=== PATIENT | male | born 1970 | race Caucasian/White ===

== ENCOUNTER → 2024-08-04 09:55 | Outpatient (REF) | payer MEDICARE, SELFPAY | LOC: RCS 09:55 | PROVIDERS: ATTENDING PHYSICIAN Family Medicine | DX: R07.89 Other chest pain (principal) | CPT/HCPCS: 93005 ==

== ENCOUNTER → 2024-08-13 12:04 | Outpatient (REF) | payer MEDICARE, SELFPAY | LOC: RAD 12:04 | PROVIDERS: ATTENDING PHYSICIAN Internal Medicine Critical Care Medicine; FAMILY PHYSICIAN Family Medicine | DX: R06.02 Shortness of breath (principal) | CPT/HCPCS: 71046 ==

== ENCOUNTER → 2024-08-26 09:02 | Outpatient (REF) | payer MEDICARE, SELFPAY ==
[2024-08-26] MEDS: DOBUTREX 17.7 MG IV (11:14)
[2024-08-26] MEDS: DOBUTREX 17.7 ML IV (11:14)
[2024-08-26] MEDS: NSS 250 IV (11:15)
== END ==
LOC: RCS 09:02
PROVIDERS: ATTENDING PHYSICIAN Internal Medicine Cardiovascular Disease; FAMILY PHYSICIAN Family Medicine
DX: R07.89 Other chest pain (principal); Z87.891 Personal history of nicotine dependence; R94.31 Abnormal electrocardiogram [ECG] [EKG]
CPT/HCPCS: 93017; 93320; 93325; 93350

== ENCOUNTER → 2024-09-21 12:57 | Outpatient (REF) | payer MEDICARE, SELFPAY | LOC: HWRAD 12:57 | PROVIDERS: ATTENDING PHYSICIAN Internal Medicine; FAMILY PHYSICIAN Family Medicine | DX: N20.0 Calculus of kidney (principal) | CPT/HCPCS: 76775 ==

== ENCOUNTER 2025-07-12 22:16 | Inpatient (IN) | payer MEDICARE, SELFPAY ==
[2025-07-12] VITALS (10 sets, daily range): BP systolic 63–127; BP diastolic 42–73; BMI 19.2
[2025-07-12 17:35] LABS: Hematocrit 33.7 % (39.0-52.0); Hemoglobin 12.1 g/dL (13.0-18.0); Mean Corp Hgb Conc. 35.9 g/dL (33.0-37.0); Mean Corpuscular Volume 88.7 fL (80.0-94.0); Nucleated Red Blood Cells % 0 % (-); Platelet Count 138 10^3/uL (130-400); Red Cell Dist. Width 14.1 % (11.5-14.5)
[2025-07-12 18:00] LABS: ALT (SGPT) 19 U/L (0-50); AST (SGOT) 22 U/L (17-59); Albumin 3.1 g/dl (3.5-5.0); Alkaline Phosphatase 71 U/L (38-126); Blood Urea Nitrogen 24 mg/dl (9-20); Calcium 7.5 mg/dl (8.4-10.2); Carbon Dioxide 21 mmol/L (22-30); Chloride 95 mmol/L (98-107); Glucose 117 mg/dl (70-99); Potassium 4.4 mmol/L (3.5-5.1); Sodium 120 mmol/L (135-145); Total Protein 5.5 g/dl (6.3-8.2); eGFR > 60.00
--- NOTE | 2025-07-12 19:28 | ED.GENMED ---
History of Present Illness
<Genny Salamanca PA-C - Last Filed: 07/13/25 13:25>
General
Chief Complaint: Fever
Source: patient and spouse
Exam Limitations: none
Time Seen by Provider: 07/12/25 18:33
Nursing documentation reviewed up to this point in time: agreed with
History of Present Illness
History of Present Illness:
Patient is a 55-year-old male with history of quadriplegia with suprapubic catheter, urosepsis secondary to obstructing stone who presents to the emergency department with concerns of fever and rigors at home over the past 2 days. Patient states he
began with shaking chills and fever on Saturday evening which have been persistent. Tylenol only temporarily was fever. He also reports generalized abdominal bloating as well as decreased urine production which has been very dark in color in his
catheter bag.
Patient has no sensation below his neck and therefore has been unable to appreciate any true abdominal/back pain.
He denies any other viral URI symptoms or productive cough. No shortness of breath. No known sick contacts.
Past History
<Genny Salamanca PA-C - Last Filed: 07/13/25 13:25>
Past History
ED Past Medical History: Other (quadraplegia, BRANDON, kidney stones) and Other (Kidney stones, quadriplegia, sleep apnea, ADHD, depression, cervical fusion, neurogenic bladder)
ED Past Surgical History: Orthopedic and Urological
Social History
Tobacco: Non-smoker
Alcohol: Occasional
Drug: None
Personal:
Living: with family
Family History
Family History: Other (Noncontributory)
Review of Systems
<Genny Salamanca PA-C - Last Filed: 07/13/25 13:25>
Review of Systems
Allergies reviewed?: Yes
All Other Systems: ROS reviewed and negative except as documented in HPI and ROS
Phy Exam
<Genny Salamanca PA-C - Last Filed: 07/13/25 13:25>
Physical Exam
Physical Exam:
Vitals: Febrile, normotensive
General: Patient appears in no distress.
Skin: Warm and dry, no rashes or lesions
Head: Normocephalic, atraumatic
Eyes: Sclera nonicteric. EOMs intact. No nystagmus.
Throat: No pharyngeal erythema or tonsillar edema/exudates. Uvula midline. Protecting airway
Neck: No cervical spine tenderness.
Cardiac: Regular rate and rhythm, no murmurs.
Pulm: Normal respiratory effort, no wheezes, rales, rhonchi heard on exam
Abdomen: Abdomen soft and nondistended.
Extremities: No evidence of cyanosis or edema
Neuro: AAOx3. Quadriplegia
Psychiatric: Normal affect.
Course
<Genny Salamanca PA-C - Last Filed: 07/13/25 13:25>
Orders/Labs/Results
Orders:
Orders
07/12/25 17:25
Complete Blood Count/With Diff Urgent
Comprehensive Metabolic Panel Urgent
Lactic Acid Q4H
Comment: ON ICE, CANCEL 2ND ORDER IF FIRST LACTIC ACID LEVEL <2
Blood Culture Q20M
[place] Source: Blood/Venous
Specimen Description:
Date Specimen was Collected: 07/12/25
Time Specimen was Collected: 17:15
Comment: Urgent from separate sites. If patient screens positive for possible sepsis
Urine Culture Urgent
[place] Source: U
Specimen Description:
Date Specimen was Collected: 07/12/25
Time Specimen was Collected: 17:15
07/12/25 18:43
0.9% Sodium Chloride 1000 ml [Nss] 1,000 ml IV BOLUS
Acetaminophen [Tylenol] 650 mg PO NOW STA
Cefepime HCl [Maxipime] 2,000 mg IV NOW STA
07/12/25 18:44
CT Abd/pelvis W Iv Cont Urgent
Comment:
Reason For Exam: Quadraplegic; abdominal bloating & fever
07/12/25 19:23
Cardiac Monitoring- Treatment ONCE
07/12/25 19:43
COVID-19 Antigen Urgent
Source: Nasal Swab
Urinalysis Urgent
Date Specimen was Collected: 07/12/25
Time Specimen was Collected: 17:15
Urine Microscopic Urgent
Date Specimen was Collected: 07/12/25
Time Specimen was Collected: 17:15
Blood Culture Q20M
[place] Source: Blood/Venous
Specimen Description:
Comment: Urgent from separate sites. If patient screens positive for possible sepsis
Influenza A+B Rapid Molecular Urgent
[place] Source: Nasal Swab
Specimen Description:
07/12/25 21:52
Fentanyl Citrate/Pf [Sublimaze] 100 mcg .ROUTE .STK-MED ONE
07/12/25 21:57
Fentanyl Citrate/Pf [Sublimaze] 25 mcg IV [id number] PRN
Fentanyl Citrate/Pf [Sublimaze] 25 mcg IV PACU-Q5MPRN PRN
Fentanyl Citrate/Pf [Sublimaze] 50 mcg IV PACU-Q5MPRN PRN
Ondansetron Injectable [Zofran] 4 mg IV PACU-ONCEPRN PRN
Prochlorperazine [Compazine] 5 mg IV PACU-ONCEPRN PRN
Notify MD As Directed
Notify physician if: for SDS patients with known or suspected sleep obstructive sleep apnea, monitor in the
PACU.
Notify MD for any apneic/desaturation episodes
O2 Therapy [RESP] Urgent
Titrate/Wean O2 to maintain O2 sat greater than (%): 92
Special Instructions: -Provide supplemental oxygen to achieve O2 sat of 92% or greater.
-After 15 min, may wean O2 and discontinue if patient is able to maintain O2 sat of 92%
or greater during recovery period.
If patient is a discharge home, without oxygen therapy, notify anestheiologist if
unable to maintain O2 SAT of 92% or greater on room air for MD clearance.
07/12/25 22:00
Normosol (Mult Electrolytes) [Normosol-R/Plasmalyte-A] 1,000 ml IV PER PROTOCOL
Abnormal Lab Results
07/12/25 07/12/25
17:25 19:43
WBC 10.9 H 10^3/uL
(4.8-10.8)
RBC 3.80 L 10^6/uL
(4.70-6.10)
Hgb 12.1 L g/dL
(13.0-18.0)
Hct 33.7 L %
(39.0-52.0)
MCH 31.8 H pg
(27.0-31.0)
Abs Immat Gran (auto) 0.1 H 10^3/uL
(0-0.05)
Absolute Neuts (auto) 9.8 H 10^3/uL
(1.4-6.5)
Absolute Lymphs (auto) 0.2 L 10^3/uL
(1.2-3.4)
Absolute Monos (auto) 0.7 H 10^3/uL
(0.1-0.6)
Immature Gran % 1.2 H %
(0-0.5)
Neutrophils % 89.8 H %
(42.2-75.2)
Lymphocytes % 1.9 L %
(20.5-51.1)
Sodium 120 L mmol/L
(135-145)
Chloride 95 L mmol/L
(98-107)
Carbon Dioxide 21 L mmol/L
(22-30)
BUN 24 H mg/dl
(9-20)
Glucose 117 H mg/dl
(70-99)
Calcium 7.5 L mg/dl
(8.4-10.2)
Total Protein 5.5 L g/dl
(6.3-8.2)
Albumin 3.1 L g/dl
(3.5-5.0)
Urine Ketones 2+ A
(Negative)
Urine Occult Blood 4+ A
(Negative)
Ur Leukocyte Esterase 3+ A
(Negative)
Urine RBC 80-90 A /HPF
(0-2)
Urine WBC 80-90 A /HPF
(0-5)
Urine Bacteria Many A
(Negative)
Urine Albumin 3+ A
(Neg - Trace)
07/12/25 17:25
07/12/25 17:25
Vital Signs
Initial and Last Documented VS:
Initial Vital Signs
Temp Pulse Resp BP Pulse Ox
102.5 F H 84 18 102/73 98
07/12/25 17:05 07/12/25 17:05 07/12/25 17:05 07/12/25 17:05 07/12/25 17:05
Last Documented Vital Signs
Temp Pulse Resp BP Pulse Ox
99.6 F 97 16 108/60 96
07/13/25 11:45 07/13/25 10:45 07/13/25 10:45 07/13/25 10:00 07/13/25 10:30
<Ori Fallon, DO - Last Filed: 07/12/25 20:43>
Orders/Labs/Results
Orders:
Orders
07/12/25 17:25
Complete Blood Count/With Diff Urgent
Comprehensive Metabolic Panel Urgent
Lactic Acid Q4H
Comment: ON ICE, CANCEL 2ND ORDER IF FIRST LACTIC ACID LEVEL <2
Blood Culture Q20M
[place] Source: Blood/Venous
Specimen Description:
Date Specimen was Collected: 07/12/25
Time Specimen was Collected: 17:15
Comment: Urgent from separate sites. If patient screens positive for possible sepsis
Urine Culture Urgent
[place] Source: U
Specimen Description:
Date Specimen was Collected: 07/12/25
Time Specimen was Collected: 17:15
07/12/25 18:43
0.9% Sodium Chloride 1000 ml [Nss] 1,000 ml IV BOLUS
Acetaminophen [Tylenol] 650 mg PO NOW STA
Cefepime HCl [Maxipime] 2,000 mg IV NOW STA
07/12/25 18:44
CT Abd/pelvis W Iv Cont Urgent
Comment:
Reason For Exam: Quadraplegic; abdominal bloating & fever
07/12/25 19:23
Cardiac Monitoring- Treatment ONCE
07/12/25 19:43
COVID-19 Antigen Urgent
Source: Nasal Swab
Urinalysis Urgent
Date Specimen was Collected: 07/12/25
Time Specimen was Collected: 17:15
Urine Microscopic Urgent
Date Specimen was Collected: 07/12/25
Time Specimen was Collected: 17:15
Blood Culture Q20M
[place] Source: Blood/Venous
Specimen Description:
Comment: Urgent from separate sites. If patient screens positive for possible sepsis
Influenza A+B Rapid Molecular Urgent
[place] Source: Nasal Swab
Specimen Description:
07/12/25 21:52
Fentanyl Citrate/Pf [Sublimaze] 100 mcg .ROUTE .STK-MED ONE
07/12/25 21:57
Fentanyl Citrate/Pf [Sublimaze] 25 mcg IV [id number] PRN
Fentanyl Citrate/Pf [Sublimaze] 25 mcg IV PACU-Q5MPRN PRN
Fentanyl Citrate/Pf [Sublimaze] 50 mcg IV PACU-Q5MPRN PRN
Ondansetron Injectable [Zofran] 4 mg IV PACU-ONCEPRN PRN
Prochlorperazine [Compazine] 5 mg IV PACU-ONCEPRN PRN
Notify MD As Directed
Notify physician if: for SDS patients with known or suspected sleep obstructive sleep apnea, monitor in the
PACU.
Notify MD for any apneic/desaturation episodes
O2 Therapy [RESP] Urgent
Titrate/Wean O2 to maintain O2 sat greater than (%): 92
Special Instructions: -Provide supplemental oxygen to achieve O2 sat of 92% or greater.
-After 15 min, may wean O2 and discontinue if patient is able to maintain O2 sat of 92%
or greater during recovery period.
If patient is a discharge home, without oxygen therapy, notify anestheiologist if
unable to maintain O2 SAT of 92% or greater on room air for MD clearance.
07/12/25 22:00
Normosol (Mult Electrolytes) [Normosol-R/Plasmalyte-A] 1,000 ml IV PER PROTOCOL
Abnormal Lab Results
07/12/25 07/12/25
17:25 19:43
WBC 10.9 H 10^3/uL
(4.8-10.8)
RBC 3.80 L 10^6/uL
(4.70-6.10)
Hgb 12.1 L g/dL
(13.0-18.0)
Hct 33.7 L %
(39.0-52.0)
MCH 31.8 H pg
(27.0-31.0)
Abs Immat Gran (auto) 0.1 H 10^3/uL
(0-0.05)
Absolute Neuts (auto) 9.8 H 10^3/uL
(1.4-6.5)
Absolute Lymphs (auto) 0.2 L 10^3/uL
(1.2-3.4)
Absolute Monos (auto) 0.7 H 10^3/uL
(0.1-0.6)
Immature Gran % 1.2 H %
(0-0.5)
Neutrophils % 89.8 H %
(42.2-75.2)
Lymphocytes % 1.9 L %
(20.5-51.1)
Sodium 120 L mmol/L
(135-145)
Chloride 95 L mmol/L
(98-107)
Carbon Dioxide 21 L mmol/L
(22-30)
BUN 24 H mg/dl
(9-20)
Glucose 117 H mg/dl
(70-99)
Calcium 7.5 L mg/dl
(8.4-10.2)
Total Protein 5.5 L g/dl
(6.3-8.2)
Albumin 3.1 L g/dl
(3.5-5.0)
Urine Ketones 2+ A
(Negative)
Urine Occult Blood 4+ A
(Negative)
Ur Leukocyte Esterase 3+ A
(Negative)
Urine RBC 80-90 A /HPF
(0-2)
Urine WBC 80-90 A /HPF
(0-5)
Urine Bacteria Many A
(Negative)
Urine Albumin 3+ A
(Neg - Trace)
07/12/25 17:25
07/12/25 17:25
Vital Signs
Initial and Last Documented VS:
Initial Vital Signs
Temp Pulse Resp BP Pulse Ox
102.5 F H 84 18 102/73 98
07/12/25 17:05 07/12/25 17:05 07/12/25 17:05 07/12/25 17:05 07/12/25 17:05
Last Documented Vital Signs
Temp Pulse Resp BP Pulse Ox
99.6 F 97 16 108/60 96
07/13/25 11:45 07/13/25 10:45 07/13/25 10:45 07/13/25 10:00 07/13/25 10:30
<Genny Salaamnca PA-C - Last Filed: 07/13/25 13:25>
MDM/Problems Addressed
Differential Diagnosis Includes:
Not limited to: Urosepsis, cystitis, pyelonephritis, obstructing ureteral calculus, viral illness, appendicitis, diverticulitis, etc.
MDM/Problems Addressed:
55 year-old male presenting with two days of fevers and rigors along with decreased urine output through suprapubic catheter. Also reports abdominal bloating however is quadraplegic without sensation below neck.
Patient febrile on arrival, however normotensive with otherwise stable vital signs.
On exam � patient appears in no distress. His abdomen is soft. Cardio/pulmonary assessment unremarkable. Suprapubic catheter bag with visible hematuria.
Basic labs obtained prior to my evaluation with very mild leukocytosis of 10.9 with left shift. Chemistry reveals hyponatremia and hypocalcemia. Otherwise no clinically significant abnormalities. Lactic acid normal.
Given fever on arrival with obvious hematuria � concern for urinary infection. Unable to exclude other intra-abdominal infection.
ED plan: CT scan abdomen/pelvis, UA. Patient has hx of urosepsis. IV fluids, and Cefepime initiated immediately.
Will monitor very closely and reassess. Blood cultures were sent out in triage.
Update: I did review patient CT images when he returned, which on my own interpretation reveals a suspected obstructing left proximal ureteral calculus. Given fever on arrival, concern from developing urosepsis. Case discussed with urology,
Reinaldo cornelius who also reviewed images and agrees with the interpretation. Plan for OR tonight. Patient has remained normotensive and has received IV antibiotics, IVF.
Update: UA results with clear evidence of infection. CT scan official read with 7 mm obstructing left UPJ stone. Patient was admitted to the hospitalist service and brought directly to OR for intervention in stable condition.
Chronic conditions affecting care:
History of urosepsis/kidney stones, quadriplegia
Acute Exacerbation and/or Progression of Chronic Illness:
Evolving urosepsis secondary to obstructing left ureteral calculus
<Genny Salamanca PA-C - Last Filed: 07/13/25 13:25>
*Radiology
Radiology exam reviewed: preliminary read by ED provider (CT abdomen/pelvis reviewed by me-obstructing left proximal ureteral calculus) and radiology read reviewed
*Pulse Oximetry
SaO2: 98
Oxygen Mode of Delivery: Room air
Patient hypoxic: no
*EKG
Interpreted by ED Provider?: NA
*Assistant Press Operator Interpretation
Rate: normal
Interpretation: normal
Heart Rate: 72
Rhythm: sinus
*Critical Care Note
Total Time (30-74mins, 75-104mins- exclusive of procedures): Not Applicable
<Genny Salamanca PA-C - Last Filed: 07/13/25 13:25>
Patient Management
Discussion with other providers: Hospitalist and Wardrobe Assistant (Case discussed with urology)
Escalation/DeEscalation of care consider admission/obs:
Admit with impending urosepsis secondary to obstructing left ureteral calculus�plan for OR tonight with urology
ED Attending Note
<Genny Salamanca PA-C - Last Filed: 07/13/25 13:25>
-
Portions of this chart may have been created with voice recognition software.� Occasional wrong word or��sound alike� substitutions may have occurred due to the inherent limitations of voice recognition software.
<Ori Fallon DO - Last Filed: 07/12/25 20:43>
ED Attending Note
Patient seen and examined by attending physician: Yes
I performed the substantive portion of visit, reviewed & personally made and approve the management plan that is documented in note by myself or ANTHONY.: Yes
ED Attending Note:
I evaluated the patient at bedside. The patient currently is not tachycardic but is febrile. White count 10.9 with left shift. He was already given cefepime earlier in the course of the emergency department. His lactic is 1.9. Urology has been
notified. I personally reviewed CT imaging which shows an obstructing stone in the mid left ureter
Discharge Plan
Departure
Patient Disposition: Admit
Date of Disposition: 07/12/25
Time of Disposition: 21:15
Presentation/result/management discussed w/ accepting MD/DO: Hospitalist
Discharge Problem:
Calculus of proximal left ureter
Interventions
Interventions:
*Risk Screen - Suicide Last Done: 07/12/25 17:05
*General Assessment Last Done: 07/12/25 17:05
*Neglect/Abuse Screening Last Done: 07/12/25 17:05
*ED- Fall Risk Assessment Last Done: 07/12/25 21:16
*ED COVID-19 Vaccine History Last Done: 07/12/25 21:16
*Nursing Disposition Last Done: 07/12/25 21:52
ED- Neurological Assessment Last Done: 07/12/25 21:16
ED-Skin Assessment Last Done: 07/12/25 21:16
Discharge Date and Time
Discharge Date/Time: 07/12/25 21:52
[2025-07-12] MEDS: TYLENOL 650 MG PO (19:52)
[2025-07-12 20:25] LABS: COVID-19 Antigen Negative (Negative)
[2025-07-12] MEDS: MAXIPIME 2000 MG IV (20:37)
[2025-07-12] MEDS: NSS 1000 IV (20:37)
[2025-07-12 21:11] LABS: Urine Character Cloudy (Clear)
[2025-07-12 21:28] LABS: Urine Squamous Cell 16-20 /LPF (Few)
[2025-07-12 21:29] LABS: Urine Red Blood Cell 80-90 /HPF (0-2); Urine White Cell 80-90 /HPF (0-5)
--- NOTE | 2025-07-12 21:53 | CONS.URO ---
Consultation
-
Date/Time Consultation Performed: 07/12/250
Requesting Provider: ED
Performing Provider: Reinaldo
Reason for Consultation: Left Ureteral Stone, UTI
Medical History
History of Present Illness
ED note: '55-year-old male with history of quadriplegia with suprapubic catheter, kidney stones, urosepsis who presents emergency department with concerns of fever and rigors at home. Patient states he began with shaking chills and fever on
Saturday evening which have been persistent. He does state that Tylenol temporarily improves fever. He also reports generalized abdominal bloating as well as decreased urine production which has been very dark in color in his catheter bag.'
Past Medical History
Past Medical History: Other (uadraplegia, BRANDON, kidney stones, ADHD, depression, cervical fusion, neurogenic bladder)
Past Surgical History: Orthopedic and Urological
Allergies/Home Medications
Allergies
Allergy/AdvReac Type Severity Reaction Status Date / Time
gluten Allergy Rash Verified 09/18/23 13:03
levofloxacin (From Levaquin) Allergy facial rash Verified 09/18/23 13:03
soy Allergy Rash Verified 09/18/23 13:03
Home Medications
�Medication �Instructions �Recorded �Confirmed �Type
polyethylene glycol 3350 17 gram 17 g PO DAILYPRN PRN constipation 07/27/09 07/12/25 History
oral powder packet
cranberry extract 200 mg capsule 200 mg PO DAILY Supplement 07/11/17 07/12/25 History
(Ellura)
baclofen 10 mg tablet 10 mg PO QID 06/09/21 07/12/25 History
baclofen 20 mg tablet 20 mg PO QID 06/09/21 07/12/25 History
multivitamin with folic acid 400 1 tab PO DAILY Supplement 06/27/21 07/12/25 History
mcg tablet (Tab-A-Alisha)
methenamine hippurate 1 gram tablet 1 g PO BID 04/10/23 07/12/25 History
bupropion HCl 150 mg tablet,12 hr 150 mg PO BID@0800,1300 06/22/23 07/12/25 History
sustained-release (Wellbutrin SR)
oxybutynin chloride 5 mg tablet 5 mg PO DAILY 08/13/23 07/12/25 History
Intestinal Formula 1 cap PO DAILY 07/12/25 07/12/25 History
Lactobac no.2-Bifidobac no.1-S. 1 cap PO DAILY 07/12/25 07/12/25 History
thermo 112.5 billion cell capsule
(Visbiome)
acetaminophen 325 mg tablet 650 mg PO Q6HPRN PRN mild pain 07/12/25 07/12/25 History
(Tylenol)
azelastine 137 mcg (0.1 %) nasal 1 spray intranasal BID 07/12/25 07/12/25 History
spray
zaleplon 10 mg capsule 10 mg PO HSPRN PRN if wakes up 07/12/25 07/12/25 History
with ambien
zolpidem 12.5 mg tablet,extended 12.5 mg PO HS 07/12/25 07/12/25 History
release,multiphase (Ambien CR)
Physical Exam
Vital Signs
Vital Signs
Temp Pulse Resp BP Pulse Ox
100.7 F H 88 15 127/50 99
07/12/25 20:54 07/12/25 21:00 07/12/25 21:00 07/12/25 21:00 07/12/25 21:00
Lab / Testing Results
Laboratory Results
07/12/25 17:25
07/12/25 17:25
Physical Exam
adult male
supine on gurney
quadreplegic
General: No Apparent Distress
Genito-urinary: [facility]rera Catheter
Skin: Warm
Neuro: Awake and Alert
Psych: Calm
Assessment / Plan
-
Left Ureteral stone -- obstructing
UTI with evolving sepsis
Bilateral Nephrolithiasis
Bladder Stones
NGB managed by Ferrera
Data Reviewed
-
CT Scan: Image personally visualized and interpreted
Lab Data: Labs Reviewed
Old Records: Reviewed
--- NOTE | 2025-07-12 23:12 | HPS.HSE ---
Family Physician
-
Family Physician: Brooke Hanson
Chief Complaint
-
Fever
History of Present Illness
Patient is a 55y M with PMH significant for quadriplegia s/p cervical spine injury who presents to ED complaining of fever. Patient states that he felt somewhat bloated on Saturday. He has had kidney stones / sepsis in the past and notes that
abdominal bloating and fever are his usual symptoms. He also states that he appreciated some decrease in his SPC urine output. He was seen by his PCP today who referred him to the ED for further evaluation.
He was noted to be febrile here to 102.5. CT revealed L ureteral stone with hydro.
Patient was taken urgently to the OR for cysto / stent.
Medical History
Past Medical History
Past Medical History: Reports Other
Additional Past Medical History:
Quadriplegia s/p Cervical Spine Injury
Nephrolithiasis
Neurogenic Bladder
BRANDON (Inspire)
Chronic Hyponatremia
Iron Deficiency Anemia
Past Surgical History: Reports Other
Additional Past Surgical History:
Cervical Fusion
Spine Stimulator
Tendon Transplant
Hemorrhoidectomy
Suprapubic Catheter
Social History
Tobacco: Former Smoker (Quit smoking 15 years ago.)
Alcohol: Occasional
Drug: None
Personal:
Living: With Family
Family History
Family History: Not pertinent
Allergies / Home Medications
Allergies reflects when Allergies were last updated in [employer].
Home Medications with original date entered in [employer]
Allergy/Medication List:
Allergies
Allergy/AdvReac Type Severity Reaction Status Date / Time
gluten Allergy Rash Verified 09/18/23 13:03
levofloxacin (From Levaquin) Allergy facial rash Verified 09/18/23 13:03
soy Allergy Rash Verified 09/18/23 13:03
Home Medications
polyethylene glycol 3350 17 gram oral powder packet 17 g PO DAILYPRN PRN constipation 07/27/09
cranberry extract 200 mg capsule (Ellura) 200 mg PO DAILY Supplement 07/11/17
baclofen 10 mg tablet 10 mg PO QID 06/09/21
baclofen 20 mg tablet 20 mg PO QID 06/09/21
multivitamin with folic acid 400 mcg tablet (Tab-A-Alisha) 1 tab PO DAILY Supplement 06/27/21
methenamine hippurate 1 gram tablet 1 g PO BID 04/10/23
bupropion HCl 150 mg tablet,12 hr sustained-release (Wellbutrin SR) 150 mg PO BID@0800,1300 06/22/23
oxybutynin chloride 5 mg tablet 5 mg PO DAILY 08/13/23
Intestinal Formula 1 cap PO DAILY 07/12/25
Lactobac no.2-Bifidobac no.1-S. thermo 112.5 billion cell capsule (Visbiome) 1 cap PO DAILY 07/12/25
acetaminophen 325 mg tablet (Tylenol) 650 mg PO Q6HPRN PRN mild pain 07/12/25
azelastine 137 mcg (0.1 %) nasal spray 1 spray intranasal BID 07/12/25
zaleplon 10 mg capsule 10 mg PO HSPRN PRN if wakes up with ambien 07/12/25
zolpidem 12.5 mg tablet,extended release,multiphase (Ambien CR) 12.5 mg PO HS 07/12/25
Review of Systems
-
History Source: Patient
A 12 point ROS was completed and negative except as noted: Yes
Constitutional: Reports Fever, Fatigue and Chills
EENT: Denies Sore Throat
Respiratory: Denies Cough or Trouble Breathing
Cardiac: Denies Chest Pain or Palpitations
Abdomen/GI: Reports Other (Bloating); Denies Abdominal Pain, Nausea or Vomiting
: Reports Suprapubic Tube; Denies Flank Pain
Neurological: Reports Other (quadriplegia)
Physical Exam
Vital Signs
Vital Signs
Temp Pulse Resp BP Pulse Ox
98.1 F 83 15 63/42 96
07/12/25 23:00 07/12/25 23:02 07/12/25 23:02 07/12/25 23:02 07/12/25 23:02
Physical Exam
General: Other (55y M in no acute distress.)
HEENT: Moist mucous membranes and PERRLA
Respiratory: Clear; No Wheezes, Rales or Rhonchi
Cardiac: S1/S2 and Regular Rhythm; No Murmur
GI: Other (Abdomen softly distended. No tenderness.)
Genito-urinary: Other (SPC in place draining caleb colored urine.)
Musculoskeletal: Other (Muscle wasting x 4 extremities.)
Neuro: AO x 3 and Other (Quadriplegia. Some UE movement.)
Laboratory Results
-
07/12/25 17:25
07/12/25 17:25
Laboratory Results
Lactic Acid Cancelled 07/12/25 21:15
Total Bilirubin 0.6 mg/dl (0.2-1.3) 07/12/25 17:25
AST 22 U/L (17-59) 07/12/25 17:25
ALT 19 U/L (0-50) 07/12/25 17:25
Alkaline Phosphatase 71 U/L (38-126) 07/12/25 17:25
Impression/Plan
-
A/P: Patient is a 55y M with PMH significant for quadriplegia s/p cervical spinal cord injury who presents to ED complaining of fever and abdominal bloating.
Left Ureteral Stone
Hydronephrosis secondary to the above
UTI
Sepsis secondary to the above
- Admit to IMU for further evaluation and treatment.
- Appreciate Urology evaluation / intervention. s/p cysto / stent placement in the OR this evening.
- Continue ceftriaxone pending culture data.
- Supportive care including antipyretics, IVFs, etc.
- Follow for clinical improvement.
- Follow fever curve.
Chronic Hyponatremia
- Na levels appear mostly c/w prior values.
- IVF support given sepsis presentation.
- Follow for changes in Na levels.
Quadriplegia s/p Spinal Cord Injury
Neurogenic Bladder
- Continue supportive care.
- Suprapubic catheter in place.
BRANDON
- Stable. Has Inspire device.
Anemia of Chronic Disease
- Stable. Hgb is at / near known baseline.
- Follow for changes.
DVT Prophylaxis: Subcut Heparin
Code Status: Full
--- NOTE | 2025-07-12 23:20 | SUR.PHASEI ---
pt discharge to IMU. pt vss, denies pain. pt is afebrile. charted under PACU pediatric module by mistake. report given to Kirit EID in IMU. pt is aaox4.
[2025-07-13] VITALS (13 sets, daily range): BP systolic 94–130; BP diastolic 50–84
[2025-07-13] MEDS: LIORESAL 30 MG PO ×5 (01:23→21:11)
[2025-07-13] MEDS: NSS 1000 IV ×3 (01:25→22:31)
[2025-07-13] MEDS: AMBIEN 10 MG PO ×2 (01:25→22:33)
[2025-07-13] MEDS: ROCEPHIN 1000 MG IV (05:39)
[2025-07-13] MEDS: STERILE WATER FOR INJECTION 10 ML IV (05:39)
[2025-07-13 06:15] LABS: Hematocrit 35.8 % (39.0-52.0); Hemoglobin 12.6 g/dL (13.0-18.0); Mean Corp Hgb Conc. 35.2 g/dL (33.0-37.0); Mean Corpuscular Volume 88.2 fL (80.0-94.0); Platelet Count 146 10^3/uL (130-400); Red Cell Dist. Width 14.3 % (11.5-14.5)
[2025-07-13 06:52] LABS: Blood Urea Nitrogen 15 mg/dl (9-20); Calcium 7.6 mg/dl (8.4-10.2); Carbon Dioxide 20 mmol/L (22-30); Chloride 106 mmol/L (98-107); Estimated Creatinine Clearance 122 ml/min; Glucose 129 mg/dl (70-99); Potassium 4.5 mmol/L (3.5-5.1); Sodium 133 mmol/L (135-145); eGFR > 60.00
--- NOTE | 2025-07-13 08:38 | W.PN.HOSP.TC ---
Today's Communication/Plan
-
Continue antibiotics
Appreciate ID and urology
Follow cultures, labs, vitals
See plan
Assessment / Plan
Assessment / Plan
Physical Exam
General: Not in acute distress
HEENT: Moist mucous membranes
Respiratory: Clear to Auscultation Bilaterally
Cardiac: S1/S2 and Regular Rhythm
GI: Soft. Nontender. Positive bowel sounds.
Genito-urinary: Other (SPC in place draining caleb colored urine.)
Musculoskeletal: Other (Muscle wasting x 4 extremities.)
Neuro: AO x 3 and Other (Quadriplegia. Some UE movement.)
Assessment/Plan
55 y/o male with past medical history significant for quadriplegia s/p cervical spine injury who presented to [facility] ED complaining of fever. Patient stated that he felt somewhat bloated on Saturday07/10/25. He has had kidney stones / sepsis in the
past and noted that abdominal bloating and fever are his usual symptoms. He also stated that he appreciated some decrease in his suprapubic catheter urine output. He was seen by his PCP on 07/12/25 who referred him to the ED for further evaluation.
He was noted to be febrile here to 102.5. CT revealed L ureteral stone with hydro.
Patient was taken urgently to the OR for cysto / stent.
Left Ureteral Stone status post emergent cystoscopy and urinary stent placement on 07/12/25
Hydronephrosis secondary to the above
UTI
Sepsis secondary to the above
- Continue monitoring in IMU
- Stop Rocephin. Start Ertapenem given previous ESBL recently; appreciate ID
- Follow fever curve.
Chronic Hyponatremia
- Na levels appear mostly c/w prior values.
- IVF support given sepsis presentation.
- Follow for changes in Na levels.
Quadriplegia s/p Spinal Cord Injury
Neurogenic Bladder
- Continue supportive care.
- Suprapubic catheter in place.
BRANDON
- Stable. Has Inspire device.
Anemia of Chronic Disease
- Stable. Hgb is at / near known baseline.
- Follow for changes.
DVT Prophylaxis: Subcutaneous Heparin
Code Status: Full Code
Anticipated Discharge: 24 - 48 hours
Subjective/Interval History
-
Date of Service: July 13, 2025
Patient was seen and examined. He reported no new symptoms/complaints, was doing okay.
Objective Data
-
Labs:
Laboratory Results
07/13/25
06:01
WBC 10.7
Hgb 12.6 L
Hct 35.8 L
Plt Count 146
Sodium 133 L D
Potassium 4.5
Chloride 106
Carbon Dioxide 20 L
BUN 15
Creatinine 0.4 L
Glucose 129 H
Calcium 7.6 L
Vital Signs:
Vital Signs
Temp Pulse Resp BP Pulse Ox
98.0 F 69 11 118/73 98
07/13/25 03:02 07/13/25 03:45 07/13/25 03:45 07/13/25 02:00 07/13/25 03:45
I&O
07/12/25 07/13/25 07/14/25
06:59 06:59 06:59
Intake Total 0 / 0
Output Total 1710 / 1710
Balance -1710 / -1710
[2025-07-13] MEDS: DITROPAN 5 MG PO (09:01)
[2025-07-13] MEDS: HEPARIN 5000 UNITS SC ×2 (09:01→21:12)
[2025-07-13] MEDS: WELLBUTRIN SR (12 hour sustained release) 150 MG PO ×2 (09:01→14:07)
--- NOTE | 2025-07-13 09:04 | W.PN.URO.CBU ---
Today's Communication / Plan
-
care per medical team
Assessment / Plan
-
Left Ureteral stone -- obstructing
UTI with evolving sepsis
Bilateral Nephrolithiasis
Bladder Stones
Bulbar Urethral Stricture
NGB managed by SPT
Diagnosis
-
Date of Service: July 13, 2025
-
Patient Diagnosis:
Left Ureteral stone -- obstructing --s/p emergency ureteral stenting
UTI with evolving sepsis
Bilateral Nephrolithiasis
Bladder Stones
NGB managed by SPT
Bulbar Urethral Stricture
Post Op Day: 1
Objective
-
Vital Signs
Temp Pulse Resp BP Pulse Ox
98.0 F 69 11 118/73 98
07/13/25 03:02 07/13/25 03:45 07/13/25 03:45 07/13/25 02:00 07/13/25 03:45
Intake and Output
07/12/25 07/13/25 07/14/25
06:59 06:59 06:59
Intake Total 0 / 0
Output Total 1710 / 1710
Balance -1710 / -1710
Intake:
Amount instilled into Urinary 0 / 0
Drain (Total)
Right Nephrostomy 0 / 0
Output:
Urinary Drain Output (Total) 250 / 250
Right Nephrostomy 250 / 250
Urine, Ferrera 250 / 250
Suprapubic output 1210 / 1210
Laboratory Results
07/13/25 06:01
07/13/25 06:01
Physical Exam
-
Abdomen - SPT draining cloudy urine
--- NOTE | 2025-07-13 11:20 | CON.ID ---
Consultation
-
Date/Time Consultation Requested: 07/13/25 10:33
Date/Time Consultation Performed: 07/13/25 11:21
Requesting Provider: Dr Nunez
Performing Provider: Dr Ron
Reason for Consultation: h/o ESBL UTI
Chief Complaint / Past History
Chief Complaint
fever
History of Present Illness
Mr Ayala is a 55 yolanda old male with quadriplegia s/p Cspine injury, suprapubic cath who presented here for fever, bloating; he reports these symptoms are UTI-equilivant for him. Symtoms began with shaking chills saturday evening which persisted
despite tylenol. He also noted decreased urine output with a dark color. On arrival here he was found to be febrile to 102.5. A Ct was done showing L ureteral stone with hydronephrosis. he was taken to the OR and underwent emergent ureteral
stenting.
Since arrival he has been afebrile, bp stable, wbc 10.7, hgb 12.6, plt 146, na 133, cr 0.4, glucose 129, LFTs wnl, 07/12 CT a/p: mild L hydronephrosis due to 7 mm UPJ stone, bilateral renal stones and bladder stones were also noted. UA with
80-90 wbc and 80-90 rbcs per hpf. Patient has a history of colonization with an ESBL about 2 years ago. Patient is currently on ceftriaxone, ID is consulted for assistance with management.
Past History
Additional Past Medical History:
quadraplegia, BRANDON, kidney stones, ADHD, depression, cervical fusion, neurogenic bladder
Additional Past Surgical History:
Cervical Fusion
Spine Stimulator
Tendon Transplant
Hemorrhoidectomy
Suprapubic Catheter
Allergy History:
gluten Allergy (Verified 09/18/23 13:03)
Rash
levofloxacin (From Levaquin) Allergy (Verified 09/18/23 13:03)
facial rash
soy Allergy (Verified 09/18/23 13:03)
Rash
Medications Reviewed: Yes
Social History
Tobacco: Former Smoker
Alcohol: Occasional
Drug: None
Family History
Family History: Not Pertinent
Review of Systems
Review of Systems
General: Fever and Chills
Vital Signs
Temp Pulse Resp BP Pulse Ox
98.0 F 97 16 108/60 96
07/13/25 03:02 07/13/25 10:45 07/13/25 10:45 07/13/25 10:00 07/13/25 10:30
Physical Exam
Physical Exam
Constitutional: No Acute Distress
Cardiovascular: Regular Rate and S1/S2; Negative Murmur or Rub
Pulmonary: Clear and Symmetric; Negative Wheezes, Rales or Rhonchi
Gastrointestinal: Soft, Non Tender, Non Distended and Normal Bowel Sounds
Skin: Warm and Dry; Negative Rash or Jaundice
Lab / Diagnostic Study Results
07/13/25 06:01
07/13/25 06:01
Abs Immat Gran (auto) 0.1 10^3/uL (0-0.05) H 07/12/25 17:25
Absolute Neuts (auto) 9.8 10^3/uL (1.4-6.5) H 07/12/25 17:25
Absolute Lymphs (auto) 0.2 10^3/uL (1.2-3.4) L 07/12/25 17:25
Absolute Monos (auto) 0.7 10^3/uL (0.1-0.6) H 07/12/25 17:25
Absolute Basos (auto) 0.0 10^3/uL (0-0.2) 07/12/25 17:25
Immature Gran % 1.2 % (0-0.5) H 07/12/25 17:25
Neutrophils % 89.8 % (42.2-75.2) H 07/12/25 17:25
Lymphocytes % 1.9 % (20.5-51.1) L 07/12/25 17:25
Monocytes % 6.2 % (1.7-9.3) 07/12/25 17:25
Eosinophils % 0.6 % (0-6) 07/12/25 17:25
Basophils % 0.3 % (0-2) 07/12/25 17:25
Lactic Acid Cancelled 07/12/25 21:15
Urine WBC 80-90 /HPF (0-5) A 07/12/25 19:43
Ur Squamous Epith Cells 16-20 /LPF (Few) 07/12/25 19:43
Microbiology Results
Micro:
07/13/25 06:03 MRSA Screen - Pending
Nose
07/12/25 17:25 Urine Culture - Pending
Urine
07/12/25 19:43 Influenza Types A & B (EVGENY) - Final
Nasal Swab Negative for Influenza A & B, NAAT
Negative results must be combined with clinical observations
and patient history.
Nucleic Acid Amplification test (NAAT)performed on the
[employer] platform.
07/12/25 19:43 Blood Culture - Pending
Blood/Venous
07/12/25 17:25 Blood Culture - Pending
Blood/Venous
Assessment / Plan
UTI possible ESBL
Renal and bladder stones
suprapubic catheter
- due to relatively recent ESBL colonization will transition patinet to ertapenem pending urine and blood cultures
- s/p emergent stenting to relieve obstructing stone
- influenza screen was negative, mrsa screen is pending
- follow clinically
--- NOTE | 2025-07-13 13:38 | PTCARENOTE ---
Upon initial assessment, patient AAOx3, states only has feeling and movement above his nipple line. Denies pain. Suprapubic draining yellow/mucousy/blood tinged urine, some leaking at site. VSS. When arrived she came out to say he seems off,
upon reassessment patient showing signs of delirium and becoming paranoid, patient had mentioned that he went through delirium a previous admission. Patient states he feels anxious. Reoriented patient to surroundings, minimized noise and closed door
while at bedside. Xanax dose ordered for anxiety. Bed alarm on. Will closely monitor patient.
[2025-07-13] MEDS: INVANZ 60 MG IV (14:07)
[2025-07-13] MEDS: NON-FORMULARY ITEM 1 SPRAY NASAL ×2 (14:07→21:12)
[2025-07-13] MEDS: XANAX 0.25 MG PO (14:26)
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
[2025-07-13] MEDS: TYLENOL 650 MG PO (17:35)
[2025-07-13] MEDS: AMBIEN PO (21:12)
[2025-07-13] MEDS: NON-FORMULARY ITEM 1 UNIT NASAL (21:28)
[2025-07-14] VITALS (12 sets, daily range): BP systolic 105–140; BP diastolic 66–101; BMI 18.8
--- NOTE | 2025-07-14 01:29 | PTCARENOTE ---
Assumed care of patient from saskia RN. Pt aaox3. NSR on monitor, hr 70-80s. SpO2 98% on RA. Hygiene completed and BEREKET medications administered. Q2T ongoing. Pt resting in bed with call you in reach.
[2025-07-14] MEDS: XANAX 0.25 MG PO (02:48)
[2025-07-14] MEDS: TYLENOL 650 MG PO ×2 (02:50→14:48)
[2025-07-14 03:11] LABS: Hematocrit 32.2 % (39.0-52.0); Hemoglobin 11.5 g/dL (13.0-18.0); Mean Corp Hgb Conc. 35.7 g/dL (33.0-37.0); Mean Corpuscular Volume 88.7 fL (80.0-94.0); Nucleated Red Blood Cells % 0 % (-); Platelet Count 173 10^3/uL (130-400); Red Cell Dist. Width 14.3 % (11.5-14.5)
[2025-07-14 03:37] LABS: Blood Urea Nitrogen 18 mg/dl (9-20); Calcium 7.7 mg/dl (8.4-10.2); Carbon Dioxide 20 mmol/L (22-30); Chloride 107 mmol/L (98-107); Estimated Creatinine Clearance 122 ml/min; Glucose 95 mg/dl (70-99); Magnesium 2.5 mg/dl (1.6-2.3); Potassium 3.9 mmol/L (3.5-5.1); Sodium 133 mmol/L (135-145); eGFR > 60.00
--- NOTE | 2025-07-14 03:47 | PTCARENOTE ---
Pt stated he was having trouble sleeping and requested medication for anxiety. ARABELLA Johns made aware and order received for Xanax (see MAR). Pt is currently resting in bed asleep.
--- NOTE | 2025-07-14 08:24 | W.PN.HOSP.TC ---
Today's Communication/Plan
-
Continue Ertapenem
Follow urine cultures
Xanax for anxiety
Transfer to telemetry
Assessment / Plan
Assessment / Plan
Physical Exam
General: Not in acute distress
HEENT: Moist mucous membranes
Respiratory: Clear to Auscultation Bilaterally
Cardiac: S1/S2 and Regular Rhythm
GI: Soft. Nontender. Positive bowel sounds.
Genito-urinary: Other (SPC in place draining caleb colored urine.)
Musculoskeletal: Other (Muscle wasting x 4 extremities.)
Neuro: AO x 3 and Other (Quadriplegia. Some UE movement.)
Assessment/Plan
55 y/o male with past medical history significant for quadriplegia s/p cervical spine injury who presented to [facility] ED complaining of fever. Patient stated that he felt somewhat bloated on Saturday07/10/25. He has had kidney stones / sepsis in the
past and noted that abdominal bloating and fever are his usual symptoms. He also stated that he appreciated some decrease in his suprapubic catheter urine output. He was seen by his PCP on 07/12/25 who referred him to the ED for further evaluation.
He was noted to be febrile here to 102.5. CT revealed L ureteral stone with hydro.
Patient was taken urgently to the OR for cysto / stent.
Left Ureteral Stone status post emergent cystoscopy and urinary stent placement on 07/12/25
Hydronephrosis secondary to the above
UTI
Sepsis secondary to the above
- Previously received Cephalosporins.
- Continue Ertapenem (Day 2) given previous ESBL recently; appreciate ID
- Follow fever curve.
- Patient will need definitive stone surgery in 2-3 weeks
Chronic Hyponatremia
- Na levels appear mostly c/w prior values.
- IVF support given sepsis presentation.
- Follow for changes in Na levels.
Quadriplegia s/p Spinal Cord Injury
Neurogenic Bladder with suprapubic catheter
Bladder Stones
Bulbar Urethral Stricture
- Continue supportive care.
- Suprapubic catheter in place.
BRANDON
- Stable. Has Inspire device.
Anemia of Chronic Disease
- Stable. Hgb is at / near known baseline.
- Follow for changes.
DVT Prophylaxis: Subcutaneous Heparin
Code Status: Full Code
Anticipated Discharge: > 48 hours
Subjective/Interval History
-
Date of Service: July 14, 2025
Patient was seen and examined. He reported that he was feeling better today, and he denied any new symptoms or complaints.
Objective Data
-
Labs:
Laboratory Results
07/14/25
03:00
WBC 10.2
Hgb 11.5 L
Hct 32.2 L
Plt Count 173
Sodium 133 L
Potassium 3.9
Chloride 107
Carbon Dioxide 20 L
BUN 18
Creatinine 0.5 L
Glucose 95
Calcium 7.7 L
Vital Signs:
Vital Signs
Temp Pulse Resp BP Pulse Ox
98.3 F 71 15 105/66 99
07/14/25 07:30 07/14/25 04:00 07/14/25 04:00 07/14/25 04:00 07/14/25 04:00
I&O
07/13/25 07/14/25 07/15/25
06:59 06:59 06:59
Intake Total 0 / 0 480 / 480
Output Total 1710 / 1710 2850 / 2850
Balance -1710 / -1710 -2370 / -2370
--- NOTE | 2025-07-14 08:40 | W.PN.ID1 ---
Date of Service
Date of Service: July 14, 2025
Today's Communication
c/w ertapenem
Assessment / Plan
UTI possible ESBL
Renal and bladder stones
suprapubic catheter
Quadreiplegia, T4 sensory level
- due to relatively recent ESBL colonization will transition patient to ertapenem pending urine and blood cultures
- s/p emergent stenting to relieve obstructing stone
- influenza screen was negative, mrsa screen is pending
- follow clinically
Chief Complaint
-: Fever
Subjective / Review of Systems
fevers ongoing
BP stable
some anxiety overnight treated medically
he is aware that his stones may be colonized
Vital Signs / Physical Exam
Vital Signs
Vital Signs
Temp Pulse Resp BP Pulse Ox
98.3 F 71 15 105/66 99
07/14/25 07:30 07/14/25 04:00 07/14/25 04:00 07/14/25 04:00 07/14/25 04:00
Physical Exam
Constitutional: No Acute Distress
Cardiovascular: Regular Rate and S1/S2; Negative Murmur or Rub
Pulmonary: Clear and Symmetric; Negative Wheezes or Rales
Gastrointestinal: Soft, Non Tender, Non Distended and Normal Bowel Sounds
Skin: Warm and Dry; Negative Rash or Jaundice
Objective Data
Lab Data
Lab Results
07/14/25 03:00
07/14/25 03:00
Estimated Creat Clear 122 ml/min 07/14/25 03:00
Lactic Acid Cancelled 07/12/25 21:15
Total Bilirubin 0.6 mg/dl (0.2-1.3) 07/12/25 17:25
AST 22 U/L (17-59) 07/12/25 17:25
ALT 19 U/L (0-50) 07/12/25 17:25
Alkaline Phosphatase 71 U/L (38-126) 07/12/25 17:25
Most recent labs reviewed.
Micro Results:
07/13/25 06:03 MRSA Screen - Final
Nose No Methicillin Resistant Staphylococcus aureus isolated.
07/12/25 19:43 Blood Culture - Preliminary
Blood/Venous No Growth in 24 hours- Final report to follow
07/12/25 17:25 Blood Culture - Preliminary
Blood/Venous No Growth in 24 hours- Final report to follow
07/12/25 17:25 Urine Culture - Preliminary
Urine
07/12/25 19:43 Influenza Types A & B (EVGENY) - Final
Nasal Swab Negative for Influenza A & B, NAAT
Negative results must be combined with clinical observations
and patient history.
Nucleic Acid Amplification test (NAAT)performed on the
[employer] platform.
[2025-07-14 08:48] LABS: Albumin 2.7 g/dl (3.5-5.0)
[2025-07-14] MEDS: WELLBUTRIN SR (12 hour sustained release) 150 MG PO ×2 (09:04→14:49)
[2025-07-14] MEDS: NSS 1000 IV (09:04)
[2025-07-14] MEDS: DITROPAN 5 MG PO (09:04)
[2025-07-14] MEDS: LIORESAL 30 MG PO ×4 (09:04→21:26)
[2025-07-14] MEDS: HEPARIN 5000 UNITS SC ×2 (09:05→21:27)
[2025-07-14] MEDS: NON-FORMULARY ITEM 1 SPRAY NASAL ×2 (09:06→21:27)
--- NOTE | 2025-07-14 12:22 | W.PN.URO.CBU ---
Today's Communication / Plan
-
Continue current management
Will need definitive stone surgery in 2-3 weeks
Assessment / Plan
-
Left Ureteral stone -- obstructing
Complicated UTI: cultures pending/leukocytosis resolved
Bilateral Nephrolithiasis
Bladder Stones
Bulbar Urethral Stricture
NGB managed by SPT
Diagnosis
-
Date of Service: July 14, 2025
-
Patient Diagnosis:
Left Ureteral stone -- obstructing --s/p emergency ureteral stenting
Complicated UTI: cultures unrevealing as of 07/14/25
Bilateral Nephrolithiasis
Bladder Stones
NGB managed by SPT
Bulbar Urethral Stricture: new
Post Op Day: 2
Subjective
-
Fatigued
Objective
-
Vital Signs
Temp Pulse Resp BP Pulse Ox
98.3 F 71 15 105/66 99
07/14/25 07:30 07/14/25 04:00 07/14/25 04:00 07/14/25 04:00 07/14/25 04:00
Intake and Output
07/13/25 07/14/25 07/15/25
06:59 06:59 06:59
Intake Total 0 / 0 480 / 480
Output Total 1710 / 1710 2850 / 2850
Balance -1710 / -1710 -2370 / -2370
Intake:
Oral fluids 480 / 480
Amount instilled into Urinary 0 / 0
Drain (Total)
Right Nephrostomy 0 / 0
Output:
Urinary Drain Output (Total) 250 / 250
Right Nephrostomy 250 / 250
Urine, Ferrera 250 / 250 1450 / 1450
Suprapubic output 1210 / 1210 1400 / 1400
Laboratory Results
07/14/25 03:00
07/14/25 03:00
Review of Systems
-
Constitutional: Fatigue
Respiratory: No Symptoms
Cardiac: No Symptoms
Abdomen/GI: No Symptoms
Physical Exam
-
General - well nourished, no acute distress
Abdomen - soft, SP tube in place
Counseling
-
Will see as outpatient to schedule stone surgery
--- NOTE | 2025-07-14 13:45 | CM ---
Following up on Patient. Infectious Disease note stated that patient is continuing with ertapenem until cultures return. Therefore, not sure if patient will need Home Infusion and what antibiotic.
Case Management will continue to follow.
PLAN: Home Infusion vs Home No Needs.
[2025-07-14] MEDS: MYLICON 40 MG PO ×2 (14:49→21:26)
[2025-07-14] MEDS: INVANZ 60 MG IV (14:49)
[2025-07-14] MEDS: NON-FORMULARY ITEM 1 ENEMA RECTAL (14:54)
[2025-07-14] MEDS: TYLENOL 325 MG PO (17:24)
[2025-07-14] MEDS: TORADOL 10 MG IV (17:25)
--- NOTE | 2025-07-14 18:22 | PTCARENOTE ---
Report called to Nery EID 2N.
--- NOTE | 2025-07-14 20:00 | PTCARENOTE ---
Patient transported to with all belongings.
[2025-07-14] MEDS: AMBIEN 10 MG PO (21:26)
[2025-07-14] MEDS: NON-FORMULARY ITEM 1 UNIT NASAL (21:29)
[2025-07-15 03:27] VITALS: BP 141/80
[2025-07-15 05:03] VITALS: BMI 18.7
[2025-07-15 07:10] VITALS: BP 139/86
[2025-07-15 08:10] LABS: Hematocrit 32.7 % (39.0-52.0); Hemoglobin 11.4 g/dL (13.0-18.0); Mean Corp Hgb Conc. 34.9 g/dL (33.0-37.0); Mean Corpuscular Volume 90.6 fL (80.0-94.0); Nucleated Red Blood Cells % 0 % (-); Platelet Count 166 10^3/uL (130-400); Red Cell Dist. Width 14.5 % (11.5-14.5)
[2025-07-15 08:30] LABS: Blood Urea Nitrogen 13 mg/dl (9-20); Calcium 8.2 mg/dl (8.4-10.2); Carbon Dioxide 20 mmol/L (22-30); Chloride 107 mmol/L (98-107); Estimated Creatinine Clearance 118 ml/min; Glucose 73 mg/dl (70-99); Potassium 4.2 mmol/L (3.5-5.1); Sodium 132 mmol/L (135-145); eGFR > 60.00
[2025-07-15] MEDS: HEPARIN 5000 UNITS SC ×2 (08:31→20:45)
[2025-07-15] MEDS: DITROPAN 5 MG PO (08:32)
[2025-07-15] MEDS: WELLBUTRIN SR (12 hour sustained release) 150 MG PO ×2 (08:32→13:14)
[2025-07-15] MEDS: LIORESAL 30 MG PO ×4 (08:32→21:40)
[2025-07-15] MEDS: NON-FORMULARY ITEM 1 SPRAY NASAL ×2 (08:33→20:45)
--- NOTE | 2025-07-15 10:40 | W.PN.ID1 ---
Date of Service
Date of Service: July 15, 2025
Today's Communication
- urine culture was polymicrobial - asked lab to ID the isolates, they will go on for identification tomorrow - hopefully we will find an oral regimen
Assessment / Plan
Fever - persistent
UTI possible ESBL - complicated
Renal and bladder stones
suprapubic catheter
Quadreiplegia, T4 sensory level
- s/p emergent stenting to relieve obstructing stone
- urine culture was polymicrobial - asked lab to ID the isolates, they will go on for identification tomorrow - hopefully we will find an oral regimen
- follow clinically
Chief Complaint
-: Fever
Subjective / Review of Systems
fevers ongoing,
BP stabilized
tolerating current therapies
Vital Signs / Physical Exam
Vital Signs
Vital Signs
Temp Pulse Resp BP Pulse Ox
100.3 F 61 16 139/86 98
07/15/25 07:10 07/15/25 07:10 07/15/25 07:10 07/15/25 07:10 07/15/25 10:00
Physical Exam
Constitutional: No Acute Distress
Cardiovascular: Regular Rate and S1/S2; Negative Murmur or Rub
Pulmonary: Clear and Symmetric; Negative Wheezes or Rales
Gastrointestinal: Soft, Non Tender, Non Distended and Normal Bowel Sounds
Skin: Warm and Dry; Negative Rash or Jaundice
Objective Data
Lab Data
Lab Results
07/15/25 07:22
07/15/25 07:22
Estimated Creat Clear 118 ml/min 07/15/25 07:22
Lactic Acid Cancelled 07/12/25 21:15
Total Bilirubin 0.6 mg/dl (0.2-1.3) 07/12/25 17:25
AST 22 U/L (17-59) 07/12/25 17:25
ALT 19 U/L (0-50) 07/12/25 17:25
Alkaline Phosphatase 71 U/L (38-126) 07/12/25 17:25
Most recent labs reviewed.
Micro Results:
07/12/25 19:43 Blood Culture - Preliminary
Blood/Venous No Growth in 48 hours- Final report to follow
07/12/25 17:25 Blood Culture - Preliminary
Blood/Venous No Growth in 48 hours- Final report to follow
07/12/25 17:25 Urine Culture - Final
Urine
07/13/25 06:03 MRSA Screen - Final
Nose No Methicillin Resistant Staphylococcus aureus isolated.
07/12/25 19:43 Influenza Types A & B (EVGENY) - Final
Nasal Swab Negative for Influenza A & B, NAAT
Negative results must be combined with clinical observations
and patient history.
Nucleic Acid Amplification test (NAAT)performed on the
[employer] platform.
--- NOTE | 2025-07-15 10:57 | W.PN.URO.CBU ---
Today's Communication / Plan
-
Hand irrigate SP tube due to leaking around the tube: discussed with nurse
Assessment / Plan
-
Left Ureteral stone -- obstructing
Complicated UTI: cultures pending/leukocytosis resolved
Bilateral Nephrolithiasis
Bladder Stones
Bulbar Urethral Stricture
NGB managed by SPT
Diagnosis
-
Date of Service: July 15, 2025
-
Patient Diagnosis:
Left Ureteral stone -- obstructing --s/p emergency ureteral stenting
Complicated UTI: cultures unrevealing as of 07/15/25
Bilateral Nephrolithiasis: left > right
Bladder Stones
NGB managed by SPT
Bulbar Urethral Stricture: new
Post Op Day: 3
Subjective
-
Comfortable
Objective
-
Vital Signs
Temp Pulse Resp BP Pulse Ox
100.3 F 61 16 139/86 98
07/15/25 07:10 07/15/25 07:10 07/15/25 07:10 07/15/25 07:10 07/15/25 10:00
Intake and Output
07/14/25 07/15/25 07/16/25
06:59 06:59 06:59
Intake Total 480 / 480 960 / 960
Output Total 2850 / 2850 2049
Balance -2370 / -2370 -1090 / -1090
Intake:
Oral fluids 480 / 480 960 / 960
Output:
Urine, Ferrera 1450 / 1450
Suprapubic output 1400 / 1400 2049
Laboratory Results
07/15/25 07:22
07/15/25 07:22
Review of Systems
-
Constitutional: Fatigue
Respiratory: No Symptoms
Cardiac: No Symptoms
Abdomen/GI: No Symptoms
Physical Exam
-
General - well nourished, no acute distress
Abdomen - soft, non-tender; SP tube draining caleb urine
Counseling
-
Will see patient early next week in office to discuss definitive stone management
--- NOTE | 2025-07-15 11:34 | W.PN.HOSP.TC ---
Today's Communication/Plan
-
Continue Ertapenem, await further urine culture identification
Hand irrigate suprapubic tube
Assessment / Plan
Assessment / Plan
Physical Exam
General: Not in acute distress
HEENT: Moist mucous membranes
Respiratory: Clear to Auscultation Bilaterally
Cardiac: S1/S2 and Regular Rhythm
GI: Soft. Nontender. Positive bowel sounds.
Genito-urinary: Other (SPC in place draining caleb colored urine.)
Musculoskeletal: Other (Muscle wasting x 4 extremities.)
Neuro: AO x 3 and Other (Quadriplegia. Some UE movement.)
Assessment/Plan
55 y/o male with past medical history significant for quadriplegia s/p cervical spine injury who presented to [facility] ED complaining of fever. Patient stated that he felt somewhat bloated on Saturday07/10/25. He has had kidney stones / sepsis in the
past and noted that abdominal bloating and fever are his usual symptoms. He also stated that he appreciated some decrease in his suprapubic catheter urine output. He was seen by his PCP on 07/12/25 who referred him to the ED for further evaluation.
He was noted to be febrile here to 102.5. CT revealed L ureteral stone with hydro.
Patient was taken urgently to the OR for cysto / stent.
Left Ureteral Stone status post emergent cystoscopy and urinary stent placement on 07/12/25
Hydronephrosis secondary to the above
UTI
Sepsis secondary to the above
Intermittent Fevers
- Previously received Cephalosporins.
- Continue Ertapenem (Day 3) given previous ESBL recently; appreciate ID
- Urine culture came back as polymicrobial -- infectious disease physician asked lab to ID the isolates, they will go on for identification tomorrow -- appreciate ID
- Follow fever curve.
- Patient will need definitive stone surgery in 2-3 weeks
- Per urology, hand irrigate suprapubic tube due to leaking around the tube: discussed with nurse
Chronic Hyponatremia
- Na levels appear mostly c/w prior values -- overall stable
- IVF support given sepsis presentation.
- Follow for changes in Na levels.
Quadriplegia s/p Spinal Cord Injury
Neurogenic Bladder with suprapubic catheter
Bladder Stones
Bulbar Urethral Stricture
- Continue supportive care.
- Suprapubic catheter in place.
BRANDON
- Stable. Has Inspire device.
Anemia of Chronic Disease
- Stable. Hgb is at / near known baseline.
- Follow for changes.
DVT Prophylaxis: Subcutaneous Heparin
Code Status: Full Code
Anticipated Discharge: 24 - 48 hours
Subjective/Interval History
-
Date of Service: July 15, 2025
Patient was seen and examined. He denied any new symptoms or complaints.
Objective Data
-
Labs:
Laboratory Results
07/15/25
07:22
WBC 7.4
Hgb 11.4 L
Hct 32.7 L
Plt Count 166
Sodium 132 L
Potassium 4.2
Chloride 107
Carbon Dioxide 20 L
BUN 13
Creatinine 0.5 L
Glucose 73
Calcium 8.2 L
Vital Signs:
Vital Signs
Temp Pulse Resp BP Pulse Ox
100.3 F 61 16 139/86 98
07/15/25 07:10 07/15/25 07:10 07/15/25 07:10 07/15/25 07:10 07/15/25 10:00
I&O
07/14/25 07/15/25 07/16/25
06:59 06:59 06:59
Intake Total 480 / 480 960 / 960
Output Total 2850 / 2850 2049 / 2049
Balance -2370 / -2370 -1090 / -1090
[2025-07-15 11:55] VITALS: BP 127/80
[2025-07-15] MEDS: INVANZ 60 MG IV (13:15)
[2025-07-15] MEDS: TORADOL 10 MG IV (13:15)
[2025-07-15 15:10] VITALS: BP 133/86
--- NOTE | 2025-07-15 15:33 | CM ---
CM following re: discharge planning.
Reviewed pt's chart, met with pt.
Pt brought his concerns regarding his hospital bed functioning. RN and Nurse Educator notified.
Pt is POD #3 emergent cystoscopy and urinary stent placement, continue supportive care. ID following for possible IV antibiotic at home vs oral antibiotic option.
Pt lives with his in a 1 story rancher with a ramp at the front door to enter, pt is quadriplegic, has an hover electric wheelchair, rolling wheelchair, has [employer]NAGER [employer] 2 and a half hours a day in the AM and the supports him at night. Pt expressed
his desire to return back home at discharge with resumptions of existing services. Pt stated he had IV antibiotics treatment before with [facility] and [facility]
D/C plan: home with home infusion therapy if IV antibiotics recommended vs home with resumptions of existing services. Pt stated his spouse will transport home on their w/c accessible van.
CM will follow with discharge plan updates as hospitalization progresses
--- NOTE | 2025-07-15 18:05 | PTCARENOTE ---
Addendum entered by Azucena Segovia RN 07/15/25 19:38:
As per dr. yuen bloody drainage should resolve on its own. Pt and made aware. oncoming Night nurse made aware. No s/s of distress noted at this time. Suprapubic site dressing C/D/I. plan of care ongoing. Call button within reach.
Original Note:
Patient observed with suprapubic cath site draining bloody output. site assessed, dressing changed. drainage noted moderate amount of red drainage. No acute distress note at this time. Urologist DR. Yuen and DR. jung made aware. no new
orders at this time. Plan of care ongoing.
[2025-07-15 19:00] VITALS: BP 121/85
[2025-07-15] MEDS: AMBIEN 10 MG PO (21:40)
[2025-07-15] MEDS: NON-FORMULARY ITEM 1 UNIT NASAL (21:43)
[2025-07-15 23:00] VITALS: BP 120/75
[2025-07-16 03:00] VITALS: BP 109/51
[2025-07-16 06:00] VITALS: BMI 18.2
[2025-07-16 07:00] VITALS: BP 134/83
[2025-07-16 07:29] LABS: Hematocrit 33.8 % (39.0-52.0); Hemoglobin 11.9 g/dL (13.0-18.0); Mean Corp Hgb Conc. 35.2 g/dL (33.0-37.0); Mean Corpuscular Volume 88.7 fL (80.0-94.0); Nucleated Red Blood Cells % 0 % (-); Platelet Count 191 10^3/uL (130-400); Red Cell Dist. Width 14.4 % (11.5-14.5)
[2025-07-16 08:09] LABS: Blood Urea Nitrogen 10 mg/dl (9-20); Calcium 8.1 mg/dl (8.4-10.2); Carbon Dioxide 19 mmol/L (22-30); Chloride 106 mmol/L (98-107); Estimated Creatinine Clearance 115 ml/min; Glucose 69 mg/dl (70-99); Potassium 3.9 mmol/L (3.5-5.1); Sodium 134 mmol/L (135-145); eGFR > 60.00
[2025-07-16] MEDS: WELLBUTRIN SR (12 hour sustained release) 150 MG PO ×2 (09:09→14:00)
[2025-07-16] MEDS: DITROPAN 5 MG PO (09:09)
[2025-07-16] MEDS: LIORESAL 30 MG PO ×3 (09:09→17:19)
[2025-07-16] MEDS: HEPARIN 5000 UNITS SC (09:10)
[2025-07-16] MEDS: NON-FORMULARY ITEM 1 SPRAY NASAL (09:11)
--- NOTE | 2025-07-16 10:37 | PN.CDI ---
CDI
- -
CDI:
Physician Documentation Request
Admit Date: 07/12/25 22:16
Dear Doctor Enrique,
Please review the following and provide your response in the progress notes.
Clinical Indicators:
Height: 5 ft 11 inches
Weight:134 (07/15)
BMI: 18.7
Please provide an associated diagnosis related to the abnormal BMI:
BMI < or = to 19
Underweight
Weight Loss
Cachectic
Anorexia
- BMI is not significant
- Other
Use of terms such as suspected, likely, concern for, or probable (associated with a specific diagnosis that is being evaluated, monitored, or treated as if it exists) are acceptable and can be coded in the inpatient setting, when documented at the
time of discharge.
Thank you,
Mitzi Mesa RN, BSN
CDI Specialist
tiger text
Please use your independent medical judgment in providing your response.
[2025-07-16 11:00] VITALS: BP 139/85
--- NOTE | 2025-07-16 11:03 | W.PN.ID1 ---
Date of Service
Date of Service: July 16, 2025
Today's Communication
- patient requesting discharge today; he is aware that the labs are not back yet and that the regimen will be empiric, if he feels worse he agrees to return to the hospital; I will recheck his cultures next week
- can transition to ciprofloxacin 500 mg PO BID x10 days
- follow up with urology
Assessment / Plan
Fever - improving
UTI possible ESBL - complicated
Renal and bladder stones
suprapubic catheter
Quadreiplegia, T4 sensory level
- s/p emergent stenting to relieve obstructing stone
- urine culture was polymicrobial - asked lab to ID the isolates
- patient requesting discharge today; he is aware that the labs are not back yet and that the regimen will be empiric, if he feels worse he agrees to return to the hospital; I will recheck his cultures next week
- can transition to ciprofloxacin 500 mg PO BID x10 days
- follow up with urology
Chief Complaint
-: Fever
Subjective / Review of Systems
fever curve downtrending
there was leaking around the suprapubic tube last night - had hand irrigation
patient is anxious for discharge today
Vital Signs / Physical Exam
Vital Signs
Vital Signs
Temp Pulse Resp BP Pulse Ox
99.5 F 53 16 134/83 98
07/16/25 07:00 07/16/25 07:00 07/16/25 07:00 07/16/25 07:00 07/16/25 07:00
Physical Exam
Constitutional: No Acute Distress
Cardiovascular: Regular Rate and S1/S2; Negative Murmur or Rub
Pulmonary: Clear and Symmetric; Negative Wheezes or Rales
Gastrointestinal: Soft, Non Tender, Non Distended and Normal Bowel Sounds
Skin: Warm and Dry; Negative Rash or Jaundice
Objective Data
Lab Data
Lab Results
07/16/25 06:13
07/16/25 06:13
Estimated Creat Clear 115 ml/min 07/16/25 06:13
Lactic Acid Cancelled 07/12/25 21:15
Total Bilirubin 0.6 mg/dl (0.2-1.3) 07/12/25 17:25
AST 22 U/L (17-59) 07/12/25 17:25
ALT 19 U/L (0-50) 07/12/25 17:25
Alkaline Phosphatase 71 U/L (38-126) 07/12/25 17:25
Most recent labs reviewed.
Micro Results:
07/12/25 17:25 Urine Culture - Preliminary
Urine Gram negative bacilli
07/12/25 19:43 Blood Culture - Preliminary
Blood/Venous No Growth in 72 hours- Final report to follow
07/12/25 17:25 Blood Culture - Preliminary
Blood/Venous No Growth in 72 hours- Final report to follow
07/13/25 06:03 MRSA Screen - Final
Nose No Methicillin Resistant Staphylococcus aureus isolated.
07/12/25 19:43 Influenza Types A & B (EVGENY) - Final
Nasal Swab Negative for Influenza A & B, NAAT
Negative results must be combined with clinical observations
and patient history.
Nucleic Acid Amplification test (NAAT)performed on the
[employer] platform.
--- NOTE | 2025-07-16 12:52 | W.PN.HOSP.TC ---
Today's Communication/Plan
-
Discharge today after Ertapenem and Cipro first dose are given
Assessment / Plan
Assessment / Plan
Physical Exam
General: Not in acute distress
HEENT: Moist mucous membranes
Respiratory: Clear to Auscultation Bilaterally
Cardiac: S1/S2 and Regular Rhythm
GI: Soft. Nontender. Positive bowel sounds.
Genito-urinary: Other (SPC in place draining caleb colored urine.)
Musculoskeletal: Other (Muscle wasting x 4 extremities.)
Neuro: AO x 3 and Other (Quadriplegia. Some UE movement.)
Assessment/Plan
55 y/o male with past medical history significant for quadriplegia s/p cervical spine injury who presented to [facility] ED complaining of fever. Patient stated that he felt somewhat bloated on Saturday07/10/25. He has had kidney stones / sepsis in the
past and noted that abdominal bloating and fever are his usual symptoms. He also stated that he appreciated some decrease in his suprapubic catheter urine output. He was seen by his PCP on 07/12/25 who referred him to the ED for further evaluation.
He was noted to be febrile here to 102.5. CT revealed L ureteral stone with hydro.
Patient was taken urgently to the OR for cysto / stent.
Left Ureteral Stone status post emergent cystoscopy and urinary stent placement on 07/12/25
Hydronephrosis secondary to the above
UTI
Sepsis secondary to the above
Intermittent Fevers
- Previously received Cephalosporins.
- Continue Ertapenem (Day 3) given previous ESBL recently; appreciate ID
- Can do Cipro 500 mg P.O. BID x10 more days; Dr. Ron will check his cultures again on 07/19/25
- Return to the ER right away if feeling worse
- Patient will need definitive stone surgery in 2-3 weeks
- Per urology, hand irrigate suprapubic tube due to leaking around the tube: discussed with nurse
Chronic Hyponatremia
- Na levels appear mostly c/w prior values -- overall stable
- IVF support given sepsis presentation.
- Follow for changes in Na levels.
Quadriplegia s/p Spinal Cord Injury
Neurogenic Bladder with suprapubic catheter
Bladder Stones
Bulbar Urethral Stricture
- Continue supportive care.
- Suprapubic catheter in place.
BRANDON
- Stable. Has Inspire device.
Anemia of Chronic Disease
- Stable. Hgb is at / near known baseline.
- Follow for changes.
Underweight
DVT Prophylaxis: Subcutaneous Heparin
Code Status: Full Code
More than 30 minutes spent in discharge including
Final examination of the patient
Summarizing hospital stay
Instructions for continuing care to all relevant caregivers
Preparation of discharge records, prescriptions, and referral forms
Total time spent (in minutes): 39
Anticipated Discharge: Today
Subjective/Interval History
-
Date of Service: July 16, 2025
Patient was seen and examined. He denied any new symptoms or complaints.
Objective Data
-
Labs:
Laboratory Results
07/16/25
06:13
WBC 6.4
Hgb 11.9 L
Hct 33.8 L
Plt Count 191
Sodium 134 L
Potassium 3.9
Chloride 106
Carbon Dioxide 19 L
BUN 10
Creatinine 0.4 L
Glucose 69 L
Calcium 8.1 L
Vital Signs:
Vital Signs
Temp Pulse Resp BP Pulse Ox
99.5 F 53 16 134/83 98
07/16/25 07:00 07/16/25 07:00 07/16/25 07:00 07/16/25 07:00 07/16/25 07:00
I&O
07/15/25 07/16/25 07/17/25
06:59 06:59 06:59
Intake Total 960 / 960 460 / 460
Output Total 2049 600 / 600
Balance -1090 / -1090 -140 / -140
--- NOTE | 2025-07-16 13:54 | CM ---
CM following re: discharge planning.
Reviewed pt's chart, met with pt.
Pt is POD #4 emergent cystoscopy and urinary stent placement, continue supportive care. per ID MD, pt is requested to be discharged home today and IV antibiotics switched to PO for 10 days.
Pt stated he wants to spend time with his family this weekend and requested to be discharged home today. IMM reviewed, pt expressed understanding and stated he cannot sign, has a copy, Form placed on chart.
Pt lives with his in a 1 story rancher with a ramp at the front door to enter, pt is quadriplegic, has an hover electric wheelchair, rolling wheelchair, has [employer] 2 and a half hours a day in the AM and the supports him at night. Pt expressed
his desire to return back home at discharge with resumptions of existing services.
D/C plan: home with resumptions of existing services. Spouse will transport home on their w/c accessible van.
[2025-07-16] MEDS: INVANZ 60 MG IV (14:26)
[2025-07-16 15:00] VITALS: BP 120/70
--- NOTE | 2025-07-16 15:16 | W.DCSUMMARY ---
Discharge Summary
Discharge Data
Date of Admission: 07/12/25
Date of Discharge: 07/16/25
Total time spent discharging patient (in min): 39
-
Pending Results: Yes
Additional Pending Results:
Microbiology lab results from hospitalization
Hospital Course
55 y/o male with past medical history significant for ESBL bacteria, quadriplegia status post cervical spine injury who presented to [facility] ED complaining of fever. Patient noted that he has had kidney stones/sepsis in the past, and he noted that
abdominal bloating and fever are his usual symptoms. He also noted some decrease in his suprapubic catheter urine output. He was seen by his primary care provider who referred him to the emergency department for further evaluation. Patient was noted
to be febrile at 102.[address] imaging showed obstructing left ureteral stone with associated hydronephrosis. Patient was started on antibiotics, and he was taken urgently to the operating room for cystoscopy/stent placement (patient would need
definitive stone surgery in 2 to 3 weeks), with urology consult placed. Given history of ESBL, infectious was consulted and antibiotics changed from cephalosporin to Ertapenem. Patient's urine culture was polymicrobial so infectious disease
physician asked the lab to identify the isolates, which could take at least a day or two. Urology recommended hand irrigation of the suprapubic tube, due to leaking around the tube. Patient requested discharge on 07/16/25; patient was made aware
that the labs are not back yet and that the antibiotic regimen on discharge would be empiric, if he feels worse he agreed to return to the hospital. Infectious disease physician would recheck his cultures the following week and recommended
transition to Ciprofloxacin 500 mg PO BID x10 days. Given patient had history of facial rash when taking Levofloxacin in the past, he was given first dose of Ciprofloxacin in the hospital, and he he no issues with the Cipro. Patient was stable for
discharge.
Discharge Plan
-
Patient Disposition: Home (Routine Discharge)
Discharge Diagnosis/Procedures: Left Ureteral Stone status post emergent cystoscopy and urinary stent placement on 07/12/25
Hydronephrosis secondary to the above
UTI
History of ESBL
Sepsis secondary to the above
Intermittent Fevers
Chronic Hyponatremia
Quadriplegia status post Spinal Cord Injury
Neurogenic Bladder with suprapubic catheter
Bladder Stones
Bulbar Urethral Stricture
BRANDON
Anemia of Chronic Disease
Underweight
Condition: Good
Diet: As tolerated
Activity: As tolerated
Other Services: VN
Activity Restrictions/Additional Instructions:
Please return to the emergency room right away if you develop new symptoms or feel worse.
Methenamine Hippurate on hold until your urinary tract infection resolves -- discuss with your primary care provider when exactly you should resume Methenamine.
Instructions: Ciprofloxacin (Systemic)
Referrals:
Brooke Hanson DO [Family Provider, Family Practice] - in less than 1 week
Referral Note: Hospitalization Follow-Up
Dannie Leong MD [Active, Urology]
Referral Note: call to schedule an appointment during next 10 days to discuss surgery to address numerous urinary tract stones
Additional Discharge Medication Instructions: Ciprofloxacin 500 mg PO BID for 10 days. First dose of Ciprofloxacin was given in the hospital.
Methenamine Hippurate on hold until your urinary tract infection resolves -- discuss with your primary care provider when exactly you should resume Methenamine.
Prescriptions:
New
ciprofloxacin HCl 500 mg Tablet
500 mg PO BID 10 Days Qty: 19 0RF
Continued
polyethylene glycol 3350 17 GRAMS powder in packet
17 g PO DAILYPRN PRN (Reason: constipation)
cranberry extract [Ellura] 200 MG capsule
200 mg PO DAILY
baclofen 20 MG tablet
20 mg PO QID
Rx Instructions:
TAKE W/ 10MG = 30MG
baclofen 10 MG tablet
10 mg PO QID
Rx Instructions:
TAKE W/ 20MG = 30MG
multivitamin with folic acid [Tab-A-Alisha] 1 TABLET tablet
1 tab PO DAILY
bupropion HCl [Wellbutrin SR] 150 mg Tablet Sustained-Release 12 Hr
150 mg PO BID@0800,1300
oxybutynin chloride 5 mg Tablet
5 mg PO DAILY
acetaminophen [Tylenol] 325 mg Tablet
650 mg PO Q6HPRN PRN (Reason: mild pain)
zaleplon 10 mg Capsule
10 mg PO HSPRN PRN (Reason: if wakes up with ambien)
azelastine 137 mcg (0.1 %) [place],Non-Aerosol
1 spray INTRANASAL BID
zolpidem [Ambien CR] 12.5 mg Tablet,Ext Release Multiphase
12.5 mg PO HS
Visbiome 112.5 billion cell Capsule
1 cap PO DAILY
Intestinal Formula
1 cap PO DAILY
Patient Comments:
Wild-Harvested [place], Wild-Harvested [place] Aged Bark, Organic Senna [place] and Pod, Organic Garlic Bulb, Organic [place] Rhizome, Wild-Harvested [place] Grape Root, Organic Cayenne Pepper, Organic [place] Pepper
Held
methenamine hippurate 1 gram tablet
1 g PO BID
Hold Instructions: Resume on 09/17/25. Discuss with your primary care physician before resuming this medication.
Discharge Orders:
Discharge Patient (As Directed); Ordered 07/16/25
Ordered By: Ruperto Nunez
Discharge Date and Time
Discharge Date/Time: 07/16/25 18:15
Print Language: [place]
[2025-07-16] MEDS: CIPRO 500 MG PO (16:00)
== END 2025-07-16 18:15 | disposition home or self-care (01) | DRG 853 ==
LOC: 2 NORTH 22:16
PROVIDERS: Emergency Medicine; Physician Assistant; ADMITTING PHYSICIAN Hospitalist; ATTENDING PHYSICIAN Hospitalist; CONSULT PHYSICIAN Specialist; EMERGENCY PHYSICIAN Emergency Medicine; FAMILY PHYSICIAN Family Medicine; OTHER PHYSICIAN Student in an Organized Health Care Education/Training Program
PROC: 0T778DZ Dilation of Left Ureter with Intraluminal Device, Via Natural or Artificial Opening Endoscopic (ICD-10-PCS; 2025-07-12)
DX: A41.9 Sepsis, unspecified organism (principal); G82.50 Quadriplegia, unspecified; E87.1 Hypo-osmolality and hyponatremia; N13.6 Pyonephrosis; Z16.12 Extended spectrum beta lactamase (ESBL) resistance; Z68.1 Body mass index [BMI] 19.9 or less, adult; F32.A Depression, unspecified; F90.9 Attention-deficit hyperactivity disorder, unspecified type; D50.9 Iron deficiency anemia, unspecified; N21.0 Calculus in bladder; G47.33 Obstructive sleep apnea (adult) (pediatric); N35.912 Unspecified bulbous urethral stricture, male; D63.8 Anemia in other chronic diseases classified elsewhere; R63.6 Underweight; N31.9 Neuromuscular dysfunction of bladder, unspecified; E83.51 Hypocalcemia; S14.109S Unspecified injury at unspecified level of cervical spinal cord, sequela; X58.XXXS Exposure to other specified factors, sequela; Z98.1 Arthrodesis status; Z87.442 Personal history of urinary calculi; Z88.1 Allergy status to other antibiotic agents; Z91.018 Allergy to other foods; Z96.82 Presence of neurostimulator; Z87.891 Personal history of nicotine dependence; Z11.52 Encounter for screening for COVID-19; Z93.6 Other artificial openings of urinary tract status
CPT/HCPCS: 74018; 74177; 76000; 80048; 80053; 81003; 81015; 82040; 83605; 83735; 84443; 85025; 85027; 87040; 87070; 87077; 87086; 87186; 87502; 87811; 96361; 96374; 99285; C2617; J1335; Q9967

== ENCOUNTER → 2025-07-21 12:32 | Outpatient (REF) | payer MEDICARE, SELFPAY | LOC: SDSPAT 12:32 | PROVIDERS: ATTENDING PHYSICIAN Specialist; FAMILY PHYSICIAN Family Medicine | DX: N20.0 Calculus of kidney (principal); Z01.818 Encounter for other preprocedural examination | CPT/HCPCS: 36415; 93005 ==

== ENCOUNTER 2025-08-03 06:21 | Day surgery (SDC) | payer MEDICARE, SELFPAY ==
[2025-08-03] VITALS (9 sets, daily range): BP systolic 103–119; BP diastolic 42–66; BMI 18.7
[2025-08-03] MEDS: NORMOSOL-R/PLASMALYTE-A 1000 IV (11:17)
== END 2025-08-03 15:00 | disposition home or self-care (01) ==
LOC: SDS 06:21
PROVIDERS: ATTENDING PHYSICIAN Specialist
DX: N20.2 Calculus of kidney with calculus of ureter (principal); N21.0 Calculus in bladder; N31.9 Neuromuscular dysfunction of bladder, unspecified; N35.919 Unspecified urethral stricture, male, unspecified site
CPT/HCPCS: 52356; 74018; 76000; 82365; 87086; C1894; C2617

== ENCOUNTER 2025-08-17 06:17 | Day surgery (SDC) | payer MEDICARE, SELFPAY ==
[2025-08-17] VITALS (8 sets, daily range): BP systolic 115–166; BP diastolic 61–100; BMI 18.7
[2025-08-17] MEDS: NORMOSOL-R/PLASMALYTE-A 1000 IV (09:57)
== END 2025-08-17 14:04 | disposition home or self-care (01) ==
LOC: SDS 06:17
PROVIDERS: ATTENDING PHYSICIAN Specialist
DX: N20.0 Calculus of kidney (principal); N31.9 Neuromuscular dysfunction of bladder, unspecified; N35.919 Unspecified urethral stricture, male, unspecified site
CPT/HCPCS: 52356; 51705; 74018; 76000; 87077; 87086; 87186; C1894; C2617; J2185